=== PATIENT | female | born 1955 | race Caucasian/White ===

== ENCOUNTER 2018-02-05 10:35 | Inpatient (IN) | payer BC ==
[~2018-02-05] VITALS: Ht 172.7 cm; Wt 95.3 kg
[2018-02-05] MEDS ORDERED: AZITHROMYCIN500 MG (11:29)
[2018-02-05] MEDS ORDERED: [UNRECOGNIZED DRUG - OTHER] (11:29)
[2018-02-08] MEDS ORDERED: LEVAQUIN750 MG PO (11:22)
== END 2018-02-08 17:19 | disposition home or self-care (01) | DRG 194 ==
LOC: ER 10:35 → MEDJ 18:31
PROC: 3E0F7GC Introduction of Other Therapeutic Substance into Respiratory Tract, Via Natural or Artificial Opening (ICD-10-PCS; principal; 2018-02-05)
PROC: 4A033R1 Measurement of Arterial Saturation, Peripheral, Percutaneous Approach (ICD-10-PCS; 2018-02-05)
PROC: BW24ZZZ Computerized Tomography (CT Scan) of Chest and Abdomen (ICD-10-PCS; 2018-02-05)
DX: J18.9 Pneumonia, unspecified organism (principal); N17.8 Other acute kidney failure; J90 Pleural effusion, not elsewhere classified; E87.1 Hypo-osmolality and hyponatremia; I10 Essential (primary) hypertension; R91.1 Solitary pulmonary nodule; B34.9 Viral infection, unspecified